=== PATIENT | female | born 1995 | race Caucasian/White ===

== ENCOUNTER 2018-09-16 19:33 | Emergency (ER) | payer MEDICAID ==
[2018-09-16] MEDS: KETOROLAC 30 MG INJ IV (21:23)
[2018-09-16] MEDS: DIPHENHYDRAMINE 50 MG INJ IV (21:23)
[2018-09-16] MEDS: SOD CHLORIDE 0.9% 1,000 ML IV (21:23)
[2018-09-16] MEDS: PROCHLORPERAZINE 10 MG INJ IV (21:24)
== END 2018-09-16 22:35 | disposition home or self-care (01) ==
LOC: FTE 19:33
DX: G43.909 Migraine, unspecified, not intractable, without status migrainosus (principal)
CPT/HCPCS: 81025; 96374; 96375; 99284-25